=== PATIENT | female | born 1940 | race Native Hawaiian/Other Pacific Islander ===

== ENCOUNTER 2017-04-05 09:32 | Outpatient (CLI) | payer OTHER ==
[~2017-04-05 09:32] MED LIST: APAP/HYDROCO1 TAB OR; ASA LOW STR81 MG PO; CIPRO500 MG PO; CRESTOR5 MG PO; FISH OIL1000 M1 OR; PLAVIX75 MG PO; TRIM800T12 PO; ZANTAC 75 PO
[2017-04-05 10:01] LABS: PLATELET COUNT 192 K/uL (152-353)
[2017-04-05 10:19] LABS: POTASSIUM 3.8 mmol/L (3.6-5.2); SODIUM 139 mmol/L (136-145)
== END 2017-04-05 10:40 | disposition home or self-care (01) ==
LOC: LABW 09:32
PROVIDERS: Internal Medicine
DX: E78.4 Other hyperlipidemia (principal)
CPT/HCPCS: 36415; 80053; 80061; 81000; 84443; 85027

== ENCOUNTER 2017-07-01 07:19 | Emergency (ER) | payer OTHER ==
[~2017-07-01] VITALS: Ht 160 cm; Wt 90.7 kg
[2017-07-01 07:30] VITALS: BP 169/70; TEMP 97.6
[2017-07-01] MEDS ORDERED: GABA300C2 PO (07:36)
[2017-07-01 08:13] LABS: PLATELET COUNT 211 K/uL (152-353)
[2017-07-01 08:21] LABS: POTASSIUM 4.1 mmol/L (3.6-5.2)
== END 2017-07-01 09:35 | disposition home or self-care (01) ==
LOC: ED 07:19
PROVIDERS: Family Medicine
DX: L50.8 Other urticaria (principal); R21 Rash and other nonspecific skin eruption; T78.49XA Other allergy, initial encounter
CPT/HCPCS: 36415; 80048; 81000; 85027; 85651; 96374; 99284; J1100; J1200

== ENCOUNTER 2018-04-26 09:30 | Outpatient (CLI) | payer OTHER ==
[~2018-04-26 09:30] MED LIST changes: +GABA300C2 PO
[2018-04-26 09:52] LABS: PLATELET COUNT 220 K/uL (152-353)
[2018-04-26 11:00] LABS: POTASSIUM 4.5 mmol/L (3.6-5.2)
== END 2018-04-26 21:18 | disposition home or self-care (01) ==
LOC: LABW 09:30
PROVIDERS: Internal Medicine
DX: E78.4 Other hyperlipidemia (principal); Z79.899 Other long term (current) drug therapy; Z51.81 Encounter for therapeutic drug level monitoring
CPT/HCPCS: 36415; 80053; 80061; 81000; 84443; 85027

== ENCOUNTER 2018-07-03 10:22 | Outpatient (CLI) | payer OTHER | END 2018-07-03 22:28 | disposition home or self-care (01) | LOC: LABW 10:22 | DX: Z00.00 Encounter for general adult medical examination without abnormal findings (principal); E55.9 Vitamin D deficiency, unspecified; Z79.899 Other long term (current) drug therapy | CPT/HCPCS: 36415; 80076; 82306 ==

== ENCOUNTER 2018-08-01 10:55 | Day surgery (SDC) | payer OTHER ==
[2018-08-01 11:54] LABS: PLATELET COUNT 237 K/uL (152-353)
== END 2018-08-01 14:10 | disposition home or self-care (01) ==
LOC: OR 10:55
PROVIDERS: Internal Medicine Gastroenterology
PROC: 0DBK8ZZ Excision of Ascending Colon, Via Natural or Artificial Opening Endoscopic (ICD-10-PCS; principal; 2018-08-01)
PROC: 0DBH8ZZ Excision of Cecum, Via Natural or Artificial Opening Endoscopic (ICD-10-PCS; 2018-08-01)
PROC: 0DBP8ZZ Excision of Rectum, Via Natural or Artificial Opening Endoscopic (ICD-10-PCS; 2018-08-01)
DX: D12.2 Benign neoplasm of ascending colon (principal); D12.0 Benign neoplasm of cecum; K62.1 Rectal polyp; K57.30 Diverticulosis of large intestine without perforation or abscess without bleeding; K64.8 Other hemorrhoids; R19.4 Change in bowel habit; K59.09 Other constipation
CPT/HCPCS: 80053; 85027; J2001; J2250; J2704

== ENCOUNTER 2018-09-25 08:36 | Outpatient (CLI) | payer OTHER | END 2018-09-25 22:09 | disposition home or self-care (01) | LOC: US 08:36 | DX: R94.5 Abnormal results of liver function studies (principal) ==

== ENCOUNTER 2019-10-29 14:23 | Outpatient (CLI) | payer OTHER | END 2019-10-29 19:33 | disposition home or self-care (01) | LOC: RAD 14:23 | DX: R06.09 Other forms of dyspnea (principal) ==

== ENCOUNTER 2021-10-29 09:46 | Outpatient (CLI) | payer OTHER ==
[2021-10-29 10:54] LABS: PLATELET COUNT 209 K/uL (152-353)
[2021-10-29 11:07] LABS: POTASSIUM 5.2 mmol/L (3.6-5.2)
== END 2021-10-29 20:38 | disposition home or self-care (01) ==
LOC: RAD 09:46
PROVIDERS: ATTEND Nurse Practitioner Family
DX: M54.81 Occipital neuralgia (principal); K76.0 Fatty (change of) liver, not elsewhere classified
CPT/HCPCS: 36415; 80053; 85027

== ENCOUNTER 2021-12-30 15:31 | Outpatient (CLI) | payer OTHER | END 2021-12-30 20:45 | disposition home or self-care (01) | LOC: RAD 15:31 | PROVIDERS: ATTEND Registered Nurse | DX: R06.02 Shortness of breath (principal) ==

== ENCOUNTER 2022-02-15 10:48 | Inpatient (IN) | payer OTHER ==
[~2022-02-15] VITALS: Ht 157.5 cm; Wt 87.7 kg
[2022-02-15 13:10] LABS: PLATELET COUNT 197 K/uL (152-353)
[2022-02-15 15:42] VITALS: BP 119/37; TEMP 97.5; Ht 157.5 cm; Wt 87.7 kg
[2022-02-15] MEDS ORDERED: ALBUTEROL108 MCG/AC PO (15:52)
[2022-02-15] MEDS ORDERED: FUROSEMIDE20 MG PO (15:52)
[2022-02-15] MEDS ORDERED: NAMZARIC 28-101 CAP PO (15:54)
[2022-02-15] MEDS ORDERED: NITROFURANTOIN100 M1 PO (15:54)
[2022-02-15] MEDS ORDERED: LISI20TA11 PO (15:55)
[2022-02-15] MEDS ORDERED: PANTOPRAZOLE SO40 M1 PO (15:55)
[2022-02-15] MEDS ORDERED: ROSUVASTATIN CAL5 MG PO (15:56)
[2022-02-15] MEDS ORDERED: PRADAXA150 MG PO (15:57)
[2022-02-15 16:23] VITALS: BP 121/32; TEMP 97.8
[2022-02-15 19:29] VITALS: BP 122/44; TEMP 98.3
[2022-02-16] VITALS: BP 148/41; TEMP 98.2
[2022-02-16 03:35] VITALS: BP 137/42; TEMP 98.4
[2022-02-16 08:00] VITALS: BP 132/43; TEMP 98.6
[2022-02-16 12:16] VITALS: BP 142/49; TEMP 97.8
[2022-02-16 16:02] VITALS: BP 131/37; TEMP 98.1
== END 2022-02-16 18:25 | disposition short-term general hospital (02) | DRG 282 ==
LOC: MED/SURG 10:48
PROVIDERS: ADMIT Internal Medicine; ATTEND Internal Medicine
DX: I21.4 Non-ST elevation (NSTEMI) myocardial infarction (principal); R00.1 Bradycardia, unspecified; R53.1 Weakness; R06.09 Other forms of dyspnea; H53.8 Other visual disturbances; R63.4 Abnormal weight loss; I48.0 Paroxysmal atrial fibrillation; E78.49 Other hyperlipidemia; F03.90 Unspecified dementia, unspecified severity, without behavioral disturbance, psychotic disturbance, mood disturbance, and anxiety; I11.0 Hypertensive heart disease with heart failure; I50.9 Heart failure, unspecified
CPT/HCPCS: 36600; 80053; 81000; 82550; 82805; 83880; 84443; 84484; 85027; 85730; 87635; 93005; 94760; J1644; J3490; U0003

== ENCOUNTER 2023-02-16 09:33 | Outpatient (CLI) | payer OTHER ==
[~2023-02-16 09:33] MED LIST changes: +ALBUTEROL108 MCG/AC PO; +FUROSEMIDE20 MG PO; +LISI20TA11 PO; +NAMZARIC 28-101 CAP PO; +NITROFURANTOIN100 M1 PO; +PANTOPRAZOLE SO40 M1 PO; +PRADAXA150 MG PO; +ROSUVASTATIN CAL5 MG PO
[2023-02-16 09:55] LABS: POTASSIUM 5.3 mmol/L (3.6-5.2)
[2023-02-16 09:59] LABS: PLATELET COUNT 220 K/uL (152-353)
== END 2023-02-16 19:04 | disposition home or self-care (01) ==
LOC: LABW 09:33
PROVIDERS: ATTEND Registered Nurse
DX: Z01.818 Encounter for other preprocedural examination (principal); Z51.81 Encounter for therapeutic drug level monitoring; Z79.899 Other long term (current) drug therapy
CPT/HCPCS: 36415; 80048; 85027; 85610

== ENCOUNTER 2023-12-01 10:24 | Outpatient (CLI) | payer OTHER ==
[2023-12-01 10:54] LABS: PLATELET COUNT 235 K/uL (152-353)
[2023-12-01 11:14] LABS: POTASSIUM 4.1 mmol/L (3.6-5.2)
== END 2023-12-01 20:06 | disposition home or self-care (01) ==
LOC: LABW 10:24
PROVIDERS: ATTEND Nurse Practitioner Family
DX: Z00.00 Encounter for general adult medical examination without abnormal findings (principal); E78.2 Mixed hyperlipidemia; R53.83 Other fatigue; E55.9 Vitamin D deficiency, unspecified; R73.03 Prediabetes
CPT/HCPCS: 36415; 80053; 80061; 82306; 82607; 82746; 83036; 84439; 84443; 84481; 85027